=== PATIENT | male | born 1990 | race Caucasian/White ===

== ENCOUNTER 2018-06-12 18:44 | Inpatient (IN) ==
--- NOTE | 2018-06-12 19:34 | Diag Imaging Result Doc PS360 ---
EXAM: HAND COMPLETE RIGHT HISTORY: hand finer edema pain limited rom TECHNIQUE: Right hand, three views COMPARISON: None. FINDINGS: No fracture. No dislocation. Mild soft tissue swelling to the third finger. No foreign body. No periosteal reaction or bone erosions. IMPRESSION: Soft tissue swelling to the third finger, but no bony abnormality. Electronically signed by Geo Toledo 06/12/2018 7:31 PM
[2018-06-12] MEDS ORDERED: KEFZOL 2 GM/D5W 2 GM/50 ML IVPB IV ONE (19:46)
[2018-06-12] MEDS ORDERED: KEFZOL 1 GM/D5W 2 GM/100 ML IVPB ONE (19:51)
[2018-06-12 20:14] LABS: BASO# 0.08 X1000 (0.0-0.2); BASO% 0.6 % (0.0-0.8); EOS# 0.64 X1000 (0.0-0.7); HEMATOCRIT 53.3 % (42.0-52.0); HEMOGLOBIN 18.3 g/dL (14.0-18.0); IMM GRAN# 0.04 X1000 (0.0-0.04); IMM GRAN% 0.3 % (0.0-0.5); LYMPH# 1.09 X1000 (1.2-3.4); LYMPH% 8.6 % (20.5-51.1); MCH 31.7 PG (27-31); MCHC 34.3 g/dL (33-37); MCV 92.4 FL (81-99); MONO% 8.6 % (1.7-9.3); MPV 9.8 FL (7.4-10.4); NEUT# 9.79 X1000 (1.4-6.5); NEUT% 76.9 % (42.2-75.2); PLT 250 X1000 (130-400); RBC 5.77 XMIL (4.7-6.1); WBC 12.74 X1000 (4.8-10.8)
[2018-06-12 20:37] LABS: AGAP 14; ALBUMIN 4.4 g/dL (3.5-5.0); ALKALINE PHOSPHATASE 138 U/L (32-122); BUN 10 mg/dL (8-22); CALCIUM 9.1 mg/dL (8.8-10.2); CHLORIDE 97 mmol/L (98-107); COSMO 279; CREATININE 0.8 mg/dL (0.7-1.2); ESTIMATED GFR > 60; GLUCOSE 100 mg/dL (70-104); GOT 21 U/L (10-34); GPT 25 U/L (10-44); POTASSIUM 4.1 mmol/L (3.5-5.1); SODIUM 140 mmol/L (136-145); TCO2 30 mmol/L (25-35); TOTAL PROTEIN 8.1 g/dL (6.3-8.3)
[2018-06-12] MEDS ORDERED: MORPHINE IV ONE (20:39)
[2018-06-12] MEDS ORDERED: ZOFRAN IV ONE (20:39)
[2018-06-12 21:35] LABS: BILIRUBIN URINE NEGATIVE (NEGATIVE); BLOOD URINE 3+ (NEGATIVE); CLARITY SL. CLOUDY (CLEAR); COLOR AMBER; GLUCOSE URINE NEGATIVE (NEGATIVE); KETONE URINE TRACE mg/dL (NEGATIVE); LEUKOCYTES URINE 1+ (NEGATIVE); NITRITE URINE NEGATIVE (NEGATIVE); PROTEIN URINE 1+(30 mg/dL) mg/dL (NEGATIVE); SP GRAVITY URINE 1.015; URINE SOURCE CLEAN CATCH; UROBILINOGEN URINE NORMAL
[2018-06-12 21:37] LABS: URINE BACTERIA 2+ /HFP; URINE CAST NONE SEEN /LPF; URINE CRYSTAL NONE SEEN /HPF; URINE EPITHELIAL CELLS >10 /HPF (<10); URINE WBC TNTC /HPF (<10); URINE YEAST NONE SEEN /HPF
--- NOTE | 2018-06-12 22:58 | PROVIDER DOCUMENTATION ---
This chart was entered by Marlin Marshall Scribe, acting as scribe for Golden Ramirez CRNP. HPI-Rash/Wound/ReCheck - General Chief Complaint: Extremity Pain Stated Complaint: RIGHT FINGER HURT Time Seen by Provider: 06/12/18 19:04 Source: patient Allergies/Adverse Reactions: Allergies Allergy/AdvReac Type Severity Reaction Status Date / Time No Known Allergies Allergy Verified 06/12/18 18:56 - History of Present Illness-Dermatology Nature of Presenting Problem: pt is a 27 yr old male presenting with 2 week hx of worsening right 3rd finger pain and swelling, unknown cause. pt reports redness, swelling and tenderness extends from tip of right 3rd finger through lateral/Melgar surface of finger Location: reports: hands (right 3rd finger) Quality: reports: painful Severity: reports: severe Onset/Duration: reports: other (2weeks) Timing: reports: changing over time, getting worse Context/Associated Symptoms: reports: tender area (right 3rd finger) Identifiable cause?: No Exposure: reports: unknown cause Locality of Occurance: Home Similar Symptoms Previously?: No Recently seen or treated by another doctor?: No Review of Systems - Adult - REVIEW OF SYSTEMS - ADULT Constitutional: denies: chills, fever Eyes: reports: no symptoms reported Ears, Nose, Mouth & Throat: reports: no symptoms reported Cardiovascular: denies: chest pain, syncope Respiratory: denies: cough, shortness of breath Gastrointestinal: denies: nausea, vomiting Genitourinary: reports: no symptoms reported Musculoskeletal: reports: bone pain, joint pain Integumentary: reports: skin sores/ulcer Neurological: denies: dizziness/vertigo, headache/migraines, numbness Psychiatric: reports: no symptoms reported Endocrine: reports: no symptoms reported Hematologic/Lymphatic: reports: no symptoms reported Allergic/Immunologic: reports: no symptoms reported All Other Systems: Reviewed and Negative Past History - Adult - PAST MEDICAL HISTORY-ADULT Review of Records: reports: Nursing Assessment Review, Medications Reviewed, Social history reviewed & non-contributory. Major Childhood Illnesses: reports: denies history Cardiovascular: reports: denies history Respiratory: reports: denies history Gastrointestinal: reports: denies history Obstetrical/Gynecological: reports: denies history Genitourinary: reports: denies history Musculoskeletal: reports: denies history Neurological: reports: denies history Endocrine/Immune: reports: denies history Other Conditions: reports: denies history - IMMUNIZATION STATUS Childhood Immunizations: See Nurse Assessment Flu Vaccine: See Nurse Assessment - FAMILY HISTORY Family History: reviewed, not pertinent - SOCIAL HISTORY Smoking: cigarettes Provider spent 3-5 mins advising pt. on dangers of tobacco.: Discussed manners to quit use, and f/u contacts for add'l counseling. Substance Use: alcohol Alcohol Use Frequency: occasionally Living Situation: family Physical Exam-General - PHYSICAL EXAM-ADULT Initial Vital Signs Reviewed: Yes - CONSTITUTIONAL General Appearance: appears well, alert, no apparent distress - EYES Eyes: PERRL/EOMI - HEAD, EARS, NOSE, MOUTH & THROAT HENMT: normocephalic/atraumatic, moist mucous membranes, normal ENT inspection - NECK Neck: non-tender, full range of motion, supple, normal inspection - RESPIRATORY Respiratory: chest non-tender, lungs clear, normal breath sounds - CARDIOVASCULAR Cardiovascular: normal peripheral pulses, regular rate, rhythm, no edema - GASTROINTESTINAL (ABDOMEN) Abdominal Exam: normal bowel sounds, non tender, soft - LYMPHATIC Lymphatic: no adenopathy - MUSCULOSKELETAL Back Exam: normal inspection, no CVA tenderness, no vertebral tenderness Extremity: erythema, swelling, tenderness, other (erythema, tenderness and swelling to right 3rd finger tip and lateral melgar aspect) - SKIN Integumentary: normal color, normal turgor, warm/dry - NEUROLOGIC Neurologic: grossly normal, no motor/sensory deficits - PSYCHIATRIC Psych/Mental Status: normal mood/affect Progress - PLAN OF CARE/RESULTS Progress/Plan/Lab Results: Vital Signs - 8 hr 06/12/18 18:51 Temperature 98.7 F Pulse Rate 90 Respiratory Rate 18 Blood Pressure 119/81 O2 Sat by Pulse Oximetry 100 Laboratory Results - last 24 hr 06/12/18 06/12/18 06/12/18 20:06 20:06 20:31 WBC 12.74 H RBC 5.77 Hgb 18.3 H Hct 53.3 H MCV 92.4 MCH 31.7 H MCHC 34.3 RDW Std Deviation 13.0 Plt Count 250 MPV 9.8 Immature Gran % (Auto) 0.3 Neut % (Auto) 76.9 H Lymph % (Auto) 8.6 L [place] % (Auto) 8.6 Eos % (Auto) 5.0 Baso % (Auto) 0.6 Immature Gran # (Auto) 0.04 Neut # (Auto) 9.79 H Lymph # (Auto) 1.09 L [place] # (Auto) 1.10 H Eos # (Auto) 0.64 Baso # (Auto) 0.08 Sodium 140 Potassium 4.1 Chloride 97 L Carbon Dioxide 30 Anion Gap 14 BUN 10 Creatinine 0.8 Estimated GFR/1.73 m2 > 60 BUN/Creatinine Ratio 13 Glucose 100 Calculated Osmolality 279 Calcium 9.1 Total Bilirubin 0.50 AST 21 ALT 25 Alkaline Phosphatase 138 H Total Protein 8.1 Albumin 4.4 Globulin 4.0 Albumin/Globulin Ratio 1.0 Urine Source CLEAN CATCH Urine Color BARON Urine Clarity SL. CLOUDY A Urine pH 5.0 Ur Specific [place] 1.015 Urine Protein 1+(30 mg/dL) A Urine Ketones TRACE Urine Blood 3+ A Urine Nitrite NEGATIVE Urine Bilirubin NEGATIVE Urine Urobilinogen NORMAL Urine Microscopic RBC 10-20 A Urine WBC 1+ A Urine Microscopic WBC TNTC A Ur Epithelial Cells >10 A Urine Crystals NONE SEEN Urine Bacteria 2+ Urine Casts NONE SEEN Urine Yeast NONE SEEN Urine Glucose NEGATIVE Orders Category Date Time Status Admit - [facility] Routine AdmDCTranf 06/12/18 20:01 Active IV Insertion ORDERED Care 06/12/18 19:46 Completed NPO Diet 06/13/18 00:01 Active HAND COMPLETE RIGHT [RAD] Stat Exams 06/12/18 18:57 Completed CBC WITH DIFF [HEME] Stat Lab 06/12/18 20:06 Completed COMPREHENSIVE METABOLIC PANEL [CHEM] Stat Lab 06/12/18 20:[address] W/POSS RFLX CULT [URINALYSIS] Stat Lab 06/12/18 20:31 Completed Cefazolin 1 gm/D5w [Kefzol 1 gm/D5w] Med 06/12/18 19:51 Discontinued 2 gm in 100 ml .ROUTE As directed Cefazolin 2 gm/D5w [Kefzol 2 gm/D5w] Med 06/12/18 19:46 Discontinued 2 gm in 50 ml IV NOW Morphine Med 06/12/18 20:39 Discontinued 4 mg IV NOW ONE Ondansetron [Zofran] Med 06/12/18 20:39 Discontinued 4 mg IV NOW ONE Result Diagrams: 06/12/18 20:06 06/12/18 20:06 - XRAY 1 XRAY: Right XRAY Study: Hand (3rd finger) Impression: Abnormal ( Signed EXAM: HAND COMPLETE RIGHT HISTORY: hand finer edema pain limited rom TECHNIQUE: Right hand, three views COMPARISON: None. FINDINGS: No fracture. No dislocation. Mild soft tissue swelling to the third finger. No foreign body. No periosteal reaction or bone erosions. IMPRESSION: Soft tissue swelling to the third finger, but no bony abnormality. Electronically signed by Geo Toledo 06/12/2018 7:31 PM 06/12/181930 Interpreting Physician: Geo Toledo MD Dictated Date/Time: 06/12/181929 cc: Trev Glaser MD; None,PCP) - CONSULTS/PCP/HOSPITALIST Notification #1 *Consult/PCP/Hospitalist*: Dr Etienne Time Discussed: 19:50 Reason/Comments: plan of care for pt admit Consult Disposition: Admit (admit to hospitalist, cover with ABX, NPO, will see in am) #2 Consult: Dr Boudreaux Time Discussed: 19:55 Reason/Comments: plan of care for pt transfer/admit Consult Disposition: Admit Departure - Departure Date of Disposition Decision: 06/12/18 Time of Disposition Decision: 20:00 DIAGNOSIS: Acute paronychia of finger of right hand Disposition: ADMITTED INPATIENT 09 Certified Medical Emergency: Emergent Condition: Stable - Critical Care Note This patient required my direct & personal management of CC.: No Attestation - Physician/ ANAI Attestation Patient care was provided by Advanced Practice Provider:: Yes Advanced Practice Provider:: Golden Ramirez Advanced Practice Provider documentation review:: The Mid-level provider documentation, treatment plan and medical decision making was reviewed by the physician who agrees with all treatment and medical decision making by the [facility]. The physician spent face to face time with patient:: No Advanced Practice Provider documentation review:: Supervising physician onsite and consulted in the evaluation and care of this patient. The physician did not have a face to face encounter with the patient. This chart was documented by the indicated scribe, (Marlin Marshall Scribe) and accurately reflects the services I performed and decisions made by me, Golden Ramirez CRNP, as attested by the provider's signature.
[2018-06-12] MEDS ORDERED: ZOFRAN IV PRN (23:22)
[2018-06-13] MEDS: MORPHINE IV PRN ×5 (00:54→21:11)
--- NOTE | 2018-06-13 02:57 | HISTORY AND PHYSICAL ---
DATE OF ADMISSION: 06/12/2018. CHIEF COMPLAINT: Right 3rd finger pain and swelling. HISTORY OF PRESENT ILLNESS: This is a 27-year-old male with unremarkable past medical history who presented to the ER complaining of a 1-week history of right 3rd finger pain and swelling. He reports that it started on the tip of the finger, he does not remember any trauma or any bite by any animal or any spider bite. He reports that it was getting worse progressively. Today, he had swelling on almost all of the 3rd finger and also he is not able to do a fist, so he decided to come to the emergency department. Upon ER evaluation he was found out to have an elevated white cell count and they already consulted Dr. Redman from Orthopedics who recommended admission for this patient. He is going to be taken to the OR tomorrow. 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, he finished treatment 6 years ago. PAST SURGICAL HISTORY: Port-A-Cath when he was a child ALLERGIES: No known drug allergies. 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 No alcohol, smoking tobacco or illicit drugs noted. FAMILY HISTORY: Noncontributory. REVIEW OF SYSTEMS: Eleven systems were reviewed and all symptoms are related to H and P. PHYSICAL EXAMINATION: VITAL SIGNS: Temperature 98.6 degrees, heart rate 110, respiratory rate 19, blood pressure 177/80, O2 saturation is 100% on room air. GENERAL: This is a 27-year-old male, lying in bed, in no acute distress. HEENT: Head is normocephalic and atraumatic. NECK: No JVD noted. No carotid bruits. No lymphadenopathy. No thyromegaly. CARDIOVASCULAR: S1, S2 heard. No murmurs, gallops, or rubs. Regular rate and rhythm. RESPIRATORY: Clear bilaterally to auscultation. No work of breathing or using of accessory muscles. ABDOMEN: Soft, nontender to palpation. Bowel sounds present. No organomegaly. EXTREMITIES: No clubbing, cyanosis, or edema. In the right 3rd finger there is swelling all over, very painful to palpation, hot to touch. NEUROLOGICAL: The patient is alert and oriented x3. Moves all 4 extremities. LABORATORY DATA: Reviewed. ASSESSMENT AND PLAN: Right 3rd finger tenosynovitis. Orthopedics has been consulted in the emergency room, they are going to taking to the operating room tomorrow. We are going to start this patient on Zosyn intravenously because of the infection and elevated white cell count. We are going to check complete blood count and basic metabolic panel tomorrow. We will see what Orthopaedics has to say. cc: Augustus Guerrier MD
[2018-06-13] MEDS ORDERED: PRILOSEC PO SCH (07:00)
[2018-06-13 07:23] LABS: BASO# 0.08 X1000 (0.0-0.2); BASO% 0.6 % (0.0-0.8); EOS# 0.87 X1000 (0.0-0.7); HEMATOCRIT 52.8 % (42.0-52.0); HEMOGLOBIN 17.9 g/dL (14.0-18.0); IMM GRAN# 0.03 X1000 (0.0-0.04); IMM GRAN% 0.2 % (0.0-0.5); LYMPH# 0.99 X1000 (1.2-3.4); LYMPH% 6.9 % (20.5-51.1); MCH 31.4 PG (27-31); MCHC 33.9 g/dL (33-37); MCV 92.6 FL (81-99); MONO# 1.39 X1000 (0.11-0.59); MONO% 9.6 % (1.7-9.3); MPV 9.7 FL (7.4-10.4); NEUT# 11.08 X1000 (1.4-6.5); NEUT% 76.7 % (42.2-75.2); PLT 247 X1000 (130-400); RDW 13.2 % (11.5-14.5); WBC 14.44 X1000 (4.8-10.8)
[2018-06-13 07:29] LABS: INR 1.06; PROTIME 14.6 Seconds (11.0-16.0)
[2018-06-13 08:02] LABS: AGAP 11; BUN 12 mg/dL (8-22); CALCIUM 8.6 mg/dL (8.8-10.2); CHLORIDE 100 mmol/L (98-107); COSMO 276; CREATININE 0.9 mg/dL (0.7-1.2); ESTIMATED GFR > 60; GLUCOSE 139 mg/dL (70-104); POTASSIUM 4.2 mmol/L (3.5-5.1); SODIUM 137 mmol/L (136-145); TCO2 26 mmol/L (25-35)
--- NOTE | 2018-06-13 10:26 | CONSULTATION ---
DATE OF CONSULTATION: 06/13/2018 CHIEF COMPLAINT: Right long finger infection. HISTORY OF PRESENT ILLNESS: This is a 27-year-old male, who noticed approximately 1 week ago that he was having pain in his right long finger with swelling that began around his fingernail with no known injury however has progressively gotten worse to the point now where he cannot flex his finger. He was then seen in the ER where I was asked to see him in orthopedic consultation. PAST MEDICAL HISTORY: Significant for hypogammaglobulinemia treated with transfusion. He has finished treatment. He had a Port-A-Cath as a cath; this is his only surgery. ALLERGIES: He has known drug allergies. 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 He denies tobacco, alcohol, or drug use. FAMILY HISTORY: None. REVIEW OF SYSTEMS: Except as related to the current injury are all negative and normal. No complaints. PHYSICAL EXAMINATION: Reveals a well-developed, well-nourished male. He is alert, oriented, and cooperative to exam. Focused exam of his right hand reveals swelling of his distal phalanx with tenderness along the entire flexor tendon sheath, and inability to flex his finger. LABORATORY: [place] [id number]. ASSESSMENT: Right index finger tenosynovitis. PLAN: We will plan on performing an incision and drainage of his tenosynovitis and his paronychia today. I have discussed with him the risks, benefits, and alternatives of this including, but not limited to bleeding, nerve damage, infection, risk from anesthesia, continued finger pain, the possibility of further surgery, possibility, of stiffness, up to and including loss of limb, life, and other imponderables. All questions were answered. No guarantees were given. He requested to proceed as planned. We will schedule surgeries as soon as we can today. cc: Jon Redman MD [facility]
[2018-06-13] MEDS ORDERED: DIPRIVAN 1% ONE (15:05)
[2018-06-13] MEDS ORDERED: NEOSPORIN G.U. IRRIGANT ONE (15:26)
[2018-06-13] MEDS ORDERED: VANCOMYCIN IV PER PHARMACY MISC SCH (15:45)
[2018-06-13] MEDS: ZOSYN 3.375 GM in NS 50 ML IV SCH ×2 (15:54→22:30)
[2018-06-13] MEDS ORDERED: KEFZOL 2 GM/D5W 0 GM/0 ML IVPB ONE (15:59)
[2018-06-13] MEDS ORDERED: KEFZOL 1 GM/D5W 1 GM/50 ML IVPB ONE (16:03)
[2018-06-13] MEDS ORDERED: DECADRON ONE (16:12)
[2018-06-13] MEDS ORDERED: ZOFRAN ONE (16:12)
[2018-06-13] MEDS ORDERED: XYLOCAINE-MPF 2% ONE (16:12)
[2018-06-13] MEDS ORDERED: MARCAINE 0.5% ONE (16:25)
[2018-06-13] MEDS ORDERED: VANCOMYCIN 2,200 MG in NS 500 ML IV ONE (17:00)
--- NOTE | 2018-06-13 17:13 | PROGRESS NOTE ---
DATE: 06/13/2018 Today Mr. Cervantes refers to be doing fairly okay. He is just waiting for surgery to drain his right index finger infections. OBJECTIVE: Vitals: Blood pressure is 156/88, pulse is 90, respiration is 18, temperature 98.5 degrees. General: Mr. Cervantes 27-year-old male he is in bed, no distress. Mucosa is pink and moist. Anicteric. Acyanotic. Neck: Supple. Chest: Clear to auscultation. Cardiovascular: Regular rate and rhythm. Abdomen: Soft. Extremities: No pedal edema. CAN PATCHER: Patient is awake, alert, oriented. There is no focal neurological deficit. Musculoskeletal: Patient has a distal phalanx swelling of the 3rd right middle finger which is extremely tender with erythematous changes . LABORATORY DATA: WBC is up to 14.44, hemoglobin is 17.9, platelet count of 247,000. Chemistry is also reviewed which is completely normal. CURRENT MEDICATIONS: Have also been reviewed. ASSESSMENT: 1. Right middle finger paronychia with tenosynovitis. The patient is pending incision and drainage by Orthopedics. White cell count is elevated so he has been started on broad- spectrum antibiotics. 2. Tobacco abuse. Cessation has been counseled. 3. Erythrocytosis likely due to dehydration. Will hydrate and re-evaluate in the morning. cc: Nikunj Cifuentes MD MTDD
[2018-06-13] MEDS ORDERED: PERCOCET-5 ONE (17:15)
[2018-06-13] MEDS ORDERED: D5 1/2 NS + KCL 20 MEQ 1,000 ML ONE (17:28)
[2018-06-13] MEDS: D5 1/2 NS + KCL 20 MEQ 1,000 ML IV SCH (18:07)
[2018-06-13] MEDS ORDERED: PERCOCET-5 PO PRN (18:11)
--- NOTE | 2018-06-13 18:32 | OPERATIVE NOTE ---
PROCEDURE DATE: 06/13/2018 PREOPERATIVE DIAGNOSIS: Right long finger eponychia and flexor tenosynovitis. POSTOP DIAGNOSIS: Right long finger eponychia and flexor tenosynovitis. PROCEDURE: Was incision, drainage of right long finger eponychia and debridement of flexor tenosynovitis. ANESTHESIA: Was general. SURGEON: Jon Redman MD. SCALEHOUSE ATTENDANT: Joe. COMPLICATIONS: None. BLOOD LOSS: Minimal. DRAINS: None. DESCRIPTION OF PROCEDURE: Patient brought to the operative suite and placed in supine position. After successful administration general anesthesia well-padded tourniquet was placed on the upper arm and the right upper extremity was prepped and draped in usual sterile fashion. The arm was exsanguinated. Tourniquet insufflated 250 torr. A longitudinal incision was made overlying the eponychia, there was purulent material here. Cultures were obtained. The nail was then found to be completely detached and loose. It was removed and then the wound was copiously irrigated and closed with interrupted nylon suture. Attention was directed to the flexor tenosynovitis. Zigzag type incision was made through the skin and sharply in midline down to the flexor tendon sheath. This was incised. There was minimal purulent material, was washed copiously with normal saline containing irrigant then reapproximated with interrupted nylon sutures. A digital block was performed then sterile dressing applied. The patient tolerated the procedure well without complication. At the end the procedure all counts correct x2. The patient was transferred to the recovery room in stable condition. cc: Jon Redman MD [facility]
[2018-06-14] MEDS: ZOSYN 3.375 GM in NS 50 ML IV SCH (03:55)
[2018-06-14] MEDS: MORPHINE IV PRN (04:03)
[2018-06-14] MEDS ORDERED: VANCOMYCIN 1,650 MG in NS 250 ML IV SCH (05:00)
[2018-06-14 05:24] VITALS: BP 124/64
[2018-06-14] MEDS: D5 1/2 NS + KCL 20 MEQ 1,000 ML IV SCH (05:51)
--- NOTE | 2018-06-14 09:12 | PROGRESS NOTE ---
DATE: 06/14/2018 SUBJECTIVE: Justice Cervantes is postoperative day 1 from I and D of his right long finger. He is resting comfortably. He has no complaints. He states his finger is feeling better. OBJECTIVE: His Gram stain shows 1+ gram-positive cocci. The culture results are still pending. He does have a white count ordered for today. ASSESSMENT AND PLAN: We need to keep him in the hospital until we get definitive cultures. We will keep him on his current antibiotics for now. cc: Jon Redman MD
--- NOTE | 2018-06-15 09:12 | DISCHARGE SUMMARY ---
ADMISSION DATE: 06/12/2018 DISCHARGE DATE: 06/14/2018 DATE OF LEAVING AGAINST MEDICAL ADVICE: 06/14/2018 around 0830. ADMISSION DIAGNOSIS: Right third finger tenosynovitis. DISCHARGE DIAGNOSIS: 1. Right middle finger paronychia with tenosynovitis. 2. Tobacco abuse. 3. Erythrocytosis due to dehydration. CONSULTATIONS: Jon Redman MD with Orthopedics. SURGERIES OR PROCEDURES: On 06/13/2018, Dr. Redman did an incision and drainage of the right long finger eponychia and debridement of flexor tenosynovitis. There were no complications. Minimal blood loss. HOSPITAL COURSE: On 06/12/2018, Mr. Justice Cervantes a 27-year-old male with essentially no medical history other than he did have a history of hypogammaglobulinemia, which he had completed treatment for that 6 years ago, presented here with complaints of 1 week history of right third finger pain and swelling. He reports that it started at the tip of the finger, did not remember any trauma, bug bites, spider bites, etc. and noted it was progressively worsening to the point that he could not make a fist, presented to the ER with these complaints, was noted to have an elevated white blood cell count. Orthopedics was consulted for admission and surgical evaluation, was started on Zosyn IV, and then on 06/13/2018 had the surgery as listed above. There were no complications postoperatively. He remained in the hospital 1 more night and then this morning was very angry for unknown reasons, was cussing the staff, and decided to leave against medical advice around 0830. DISCHARGE VITAL SIGNS: Temperature 98.0, heart rate 68, respiratory rate 17, blood pressure 124/64, O2 saturation 98% on room air. LABORATORY DATA: From yesterday, white blood cells 14,000, hemoglobin 17, hematocrit 52, platelet count 247. INR 1.06. Sodium 137, potassium 4.2, BUN 12, creatinine 0.9, glucose 139, calcium 8.6. PERTINENT IMAGING: He had a hand x-ray on admission, showed soft tissue swelling to the third finger but no bony abnormalities. DISCHARGE DIET: Regular. DISCHARGE ACTIVITY: As tolerated. DISCHARGE MEDICATIONS: These were unable to be reconciled or anything as he left AMA. DISCHARGE INSTRUCTIONS: Unable to provide due to AMA. DISCHARGE DISPOSITION: Apparently, he likely went home. Dictated by GAYATRI Carrizales for Reymundo Ram MD cc: GAYATRI Carrizales MD
== END 2018-06-14 08:33 | disposition left against medical advice (07) | DRG 514 ==
LOC: P.ED 18:44 → SUATTDRO 21:34 → 3N 21:34
PROVIDERS: ATTEND Emergency Medicine
CPT/HCPCS: 73130; 80048; 80053; 81001; 85025; 85610; 87070; 87075; 87077; 87088; 87186; 87205; 96365; 96375; 99285; A9270; J0690; J1100; J2270; J2405; J2543; J3370; J3480; J7040; J7050; S0020